=== PATIENT | male | born 1980 | race Caucasian/White ===

== ENCOUNTER 2019-03-06 13:35 | Emergency (ER) | payer MEDICAID ==
[~2019-03-06] VITALS: Ht 165.1 cm; Wt 77.1 kg
[2019-03-06 13:40] VITALS: BP 142/69
--- NOTE | 2019-03-06 13:45 | NUR ---
38 Y/O M PRESENTS TO ER C/O LEFT WRIST PAIN X 1-2 MONTHS. PT UNABLE TO BEND LEFT THUMB. WHEN PT BENDS THUMB, PAIN RADIATES TO LEFT FOREARM. PAIN LEVEL 8/10, ACHING. DENIES TRAUMA OR INJURY. HOB ELEVATED, BED IN LOWEST POSITION, BED RAIL UP X1. WAITING FOR ERMD TO EVALUATE PT. ALLERGIES: NKA MED HX: NONE
[2019-03-06] MEDS ORDERED: IBUPROFEN 400 MG TAB PO ONE (14:20)
--- NOTE | 2019-03-06 14:23 | NUR ---
PT LEFT TO XRAY VIA W/C
[2019-03-06 14:46] VITALS: BP 142/69
--- NOTE | 2019-03-06 14:46 | NUR ---
Patient discharged with v/s stable. Written and verbal after care instructions given and explained. Pt encouraged to follow up with PCP. Pt can also apply ice to injured area for 15-20 min 3 to 4 times a day. Patient alert, oriented and verbalized understanding of instructions. Ambulatory with steady gait. All questions addressed prior to discharge. ID band removed. Patient advised to follow up with PMD. Rx of IBUPROFEN 600MG was given. Patient educated on indication of medication including possible reaction and side effects. Opportunity to ask questions provided and answered.
--- NOTE | 2019-03-06 14:46 | NUR ---
EMT APPLIED THUMB SPICA APPLIED TO LEFT HAND. TOLERATED WELL.
== END 2019-03-06 14:46 | disposition home or self-care (01) ==
LOC: MED 13:35
DX: M65.4 Radial styloid tenosynovitis [de Quervain] (principal)
CPT/HCPCS: 73110; 99283